=== PATIENT | female | born 1995 | race African-American/Black ===

== ENCOUNTER 2022-04-16 13:13 | Emergency (ER) | payer OTHER ==
[2022-04-16 13:52] LABS: Urine Blood 3+ (Negative); Urine Glucose Negative (Negative); Urine Protein 1+ (Negative); Urine Specific Gravity >=1.030 (1.005-1.030); Urine pH 5.5 (5.0-7.0)
[2022-04-16 14:21] LABS: Absolute Lymphocytes (CBC) 1.9 K/uL (0.7-4.9); Hematocrit 36.2 % (36.0-45.0); Lymphocytes % 32.5 % (15.3-44.8); MCV 92.4 fL (80-100); MPV 6.9 fL (7.6-11.3); RBC Red Blood Cell Count 3.92 M/uL (3.86-4.86)
[2022-04-16 15:08] LABS: Potassium 3.4 mmol/L (3.5-5.1)
[2022-04-16] MEDS ORDERED: ACETAMINOPHEN 325 MG TABLET ONE (16:07)
[2022-04-16] MEDS ORDERED: DICYCLOMINE HCL 10 MG CAP ONE (16:07)
[2022-04-16] MEDS ORDERED: NA CHLORIDE 0.9% 1,000 ML ONE (16:07)
--- NOTE | 2022-04-16 17:17 | RAD REPORT ---
EXAM DESCRIPTION: US - Transvaginal OB - 04/16/2022 4:59 pm CLINICAL HISTORY: VAGINAL BLEEDING COMPARISON: No comparisons TECHNIQUE: Sonographic grayscale and color flow images of a first-trimester were obtained through approach. FINDINGS: A single intrauterine is identified. Gestational sac is partially collapsed. [place]-rump length measures 24.7 millimeters, corresponding to gestational age of 8 weeks, 6 days. No cardiac activity was visualized. Maternal ovaries are unremarkable. No free fluid. IMPRESSION: 1. Single intrauterine with partially collapsed contour of the gestational sac and absent cardiac activity, concerning for demise. 2. Gestational age is 8 weeks and 6 days by crown-rump length, compared to 12 weeks and 2 days, by da te of last menstrual period calculation. The findings were communicated to Anirudh Marmolejo on 04/16/2022 at 17:12 hours.
[2022-04-16] MEDS ORDERED: POTASSIUM 25 MEQ EFFERV TAB ONE (17:36)
--- NOTE | 2022-04-16 17:41 | ER ---
Nurse's Notes [facility] Name: Susan Hutchins Age: 26 yrs Sex: Female : 1995 Arrival Date: 04/16/2022 Time: 13:15 Bed 13 Private MD: Diagnosis: Threatened Presentation: 04/16 13:18 Chief complaint: Light vaginal bleeding last night, became heavy with clots today. Also hb reports LLQ pain 7/10. Recently had a positive home test. LMP 02/18. . Coronavirus screen: At this time, the client does not indicate any symptoms associated with coronavirus-19. Ebola Screen: No symptoms or risks identified at this time. Initial Sepsis Screen: Does the patient meet any 2 criteria? No. Patient's initial sepsis screen is negative. Does the patient have a suspected source of infection? No. Patient's initial sepsis screen is negative. Risk Assessment: Do you want to hurt yourself or someone else? Patient reports no desire to harm self or others. Onset of symptoms was April 15, 2022. 13:18 Method Of Arrival: Ambulatory 13:18 Acuity: CAIN 3 hb Triage Assessment: 13:30 General: Appears in no apparent distress. uncomfortable, Behavior is calm, cooperative, bp appropriate for age. Pain: Complains of pain in pelvis. EENT: No deficits noted. Neuro: No deficits noted. Cardiovascular: No deficits noted. Respiratory: No deficits noted. GI: No signs and/or symptoms were reported involving the gastrointestinal system. : Reports vaginal bleeding that is with clots, moderate flow. Derm: No deficits noted. Musculoskeletal: No deficits noted. 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 - Social history:: Smoking status: Patient denies any tobacco usage or history of. Screenin:30 [facility] ED Fall Risk Assessment (Adult) History of falling in the last 3 months, bp including since admission No falls in past 3 months (0 pts). Abuse screen: Denies threats or abuse. Denies injuries from another. Nutritional screening: No deficits noted. Tuberculosis screening: No symptoms or risk factors identified. Assessment: 13:30 Obstetrical Assessment: General assessment: awake and alert, skin warm and dry, bp respirations even and unlabored. General: SEE TRIAGE NOTE. 14:30 Reassessment: No changes from previously documented assessment. Patient and/or family bp updated on plan of care and expected duration. Pain level reassessed. 16:09 Reassessment: No changes from previously documented assessment. Patient and/or family bp updated on plan of care and expected duration. Pain level reassessed. U/S PENDING. 17:50 Reassessment: PT DC HOME. bp Vital Signs: 13:18 BP 114 / 75; Pulse 101; Resp 18; Temp 98; Pulse Ox 100% on R/A; Weight 60.33 kg; Height hb 5 ft. 2 in. (157.48 cm); Pain 7/10; 14:30 BP 96 / 67; Pulse 86; Resp 16; Pulse Ox 99% ; bp 16:09 BP 98 / 70; Pulse 80; Resp 16; Pulse Ox 100% ; bp 17:51 BP 104 / 80; Pulse 79; Resp 16; Pulse Ox 99% ; bp 13:18 Body Mass Index 24.33 (60.33 kg, 157.48 cm) hb ED Course: 13:15 Patient arrived in ED. mr 13:17 Nazia Landaverde FNP-C is PHCP. kb 13:17 Anirudh Marmolejo MD is Attending Physician. kb 13:17 PHCP role handed off by Nazia Landaverde FNP-C cp 13:17 Brenden Ordonez PA is PHCP. cp 13:18 Anirudh Marmolejo MD is Attending Physician. cp 13:21 Triage completed. hb 13:21 Arm band placed on. hb 13:30 Patient has correct armband on for positive identification. Bed in low position. Call bp light in reach. Side rails up X2. 13:41 Rodriguez Davis, FERNANDEZ is Primary Nurse. bp 14:00 Inserted saline lock: 20 gauge in right antecubital area, using aseptic technique. bp Blood collected. 17:01 US Transvaginal Ob In Process Unspecified. EDMS 17:51 No provider procedures requiring assistance completed. IV discontinued, intact, bp bleeding controlled, No redness/swelling at site. Pressure dressing applied. Administered Medications: 15:45 Drug: NS 0.9% 1000 ml Route: IV; Rate: 1 bolus; Site: right antecubital; bp 15:45 Drug: Dicyclomine 20 mg Route: IM; Site: Other; bp 15:45 Drug: Tylenol 650 mg Route: PO; bp 17:32 Drug: Potassium Effervescent Tablet 25 mEq Route: PO; bp Medication: 13:30 VIS not applicable for this client. bp Point of Care Testing: Urine : 13:30 hCG Reading: Positive; Control Reading: Negative; bp Outcome: 17:41 Discharge ordered by . cp 17:51 Discharged to home ambulatory. bp 17:51 Condition: stable 17:51 Discharge instructions given to patient, Instructed on discharge instructions, follow up and referral plans. Demonstrated understanding of instructions, follow-up care. 17:52 Patient left the ED. bp Signatures: Dispatcher [employer] EDMS Nazia Landaverde, DIRECTOR OF DESIGN-C DIRECTOR OF DESIGN-Ckb Eulalio Ynes mr Brenden Ordonez PA PA cp Anyi Aj, FERNANDEZ RN Rodriguez Davis, FERNANDEZ RN bp Corrections: (The following items were deleted from the chart) 14:01 14:01 Inserted saline lock: 20 gauge in right antecubital area, using aseptic bp technique. Blood collected. bp 17:51 17:51 Reassessment: PT DC HOME bp bp
--- NOTE | 2022-04-16 17:41 | EDPHYS ---
Physician Documentation [facility] Name: Susan Hutchins Age: 26 yrs Sex: Female : 1995 Arrival Date: 04/16/2022 Time: 13:15 Bed 13 Private MD: ED Physician Anirudh Marmolejo HPI: 04/16 13:38 This 26 yrs old Black Female presents to ER via Ambulatory with complaints of Vaginal cp Bleeding, + Preg <12wks, Abdominal Cramping. 13:38 The patient presents to the emergency department with abdominal pain, of the left lower cp quadrant, that started today, described as crampy, vaginal bleeding, with clots. 13:38 Previous pregnancies: in previous pregnancies patient has had vaginal delivery. cp 13:38 Associated signs and symptoms: Pertinent positives: abdominal pain, vaginal bleeding, cp Pertinent negatives: chest pain, diarrhea, fever, vomiting. 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 - Social history:: Smoking status: Patient denies any tobacco usage or history of. ROS: 13:45 Constitutional: Negative for body aches, chills, fever, poor PO intake. cp 13:45 Eyes: Negative for injury, pain, redness, and discharge. cp 13:45 ENT: Negative for drainage from ear(s), ear pain, sore throat, difficulty swallowing, difficulty handling secretions. 13:45 Cardiovascular: Negative for chest pain, palpitations. 13:45 Respiratory: Negative for cough, shortness of breath, wheezing. 13:45 Abdomen/GI: Positive for abdominal cramps, Negative for vomiting, diarrhea, constipation. 13:45 : Positive for vaginal bleeding, Negative for urinary symptoms. 13:45 Neuro: Negative for altered mental status, headache, syncope, weakness. cp 13:45 All other systems are negative. Exam: 13:50 Constitutional: The patient appears in no acute distress, alert, awake, non-toxic, well cp developed, well nourished. 13:50 Head/Face: Normocephalic, atraumatic. cp 13:50 Eyes: Periorbital structures: appear normal, Conjunctiva: normal, no exudate, no injection, Sclera: no appreciated abnormality, Lids and lashes: appear normal, bilaterally. 13:50 ENT: External ear(s): are unremarkable, Nose: is normal, Mouth: Lips: moist, Oral mucosa: moist, Posterior pharynx: Airway: no evidence of obstruction, patent. 13:50 Chest/axilla: Inspection: normal. 13:50 Cardiovascular: Rate: tachycardic, Rhythm: regular, Edema: is not appreciated, JVD: is not appreciated. 13:50 Respiratory: the patient does not display signs of respiratory distress, Respirations: normal, no use of accessory muscles, no retractions, labored breathing, is not present, Breath sounds: are clear throughout, no decreased breath sounds, no stridor, no wheezing. 13:50 Abdomen/GI: Inspection: abdomen appears normal, Bowel sounds: active, all quadrants, Palpation: soft, in all quadrants, mild abdominal tenderness, in the left lower quadrant, rebound tenderness, is not appreciated, involuntary guarding, is not appreciated. 13:50 Back: pain, is absent, ROM is normal. 13:50 Neuro: Orientation: to person, place \T\ time. Mentation: is normal, Motor: moves all fours, strength is normal, Sensation: is normal. Vital Signs: 13:18 BP 114 / 75; Pulse 101; Resp 18; Temp 98; Pulse Ox 100% on R/A; Weight 60.33 kg; Height hb 5 ft. 2 in. (157.48 cm); Pain 7/10; 14:30 BP 96 / 67; Pulse 86; Resp 16; Pulse Ox 99% ; bp 16:09 BP 98 / 70; Pulse 80; Resp 16; Pulse Ox 100% ; bp 17:51 BP 104 / 80; Pulse 79; Resp 16; Pulse Ox 99% ; bp 13:18 Body Mass Index 24.33 (60.33 kg, 157.48 cm) hb MDM: 13:30 Patient medically screened. cp 17:40 Data reviewed: vital signs, nurses notes, lab test result(s), radiologic studies, cp ultrasound. 17:40 Differential diagnosis: STD, threatened Ab, inevitable Ab, complete Ab, retained Ab, cp ectopic . Consideration of Admission/Observation Escalation of care including admission/observation considered. I considered the following discharge prescriptions or medication management in the emergency department Medications were administered in the Emergency Department. See MAR. Counseling: I had a detailed discussion with the patient and/or guardian regarding: the historical points, exam findings, and any diagnostic results supporting the discharge/admit diagnosis, lab results, radiology results, the need for outpatient follow up, an OB/Gyne specialist, to return to the emergency department if symptoms worsen or persist or if there are any questions or concerns that arise at home. ED course: VSS. Discussed results of today's labs and US that showed no cardiac activity. Patient does not currently have OB. Recommend continued monitoring and recheck beta-hcg in 48 hrs. Return to ED worsening symptoms. 04/16 13:31 Order name: Abo/rh Typing; Complete Time: 15:14 04/16 16:44 Interpretation: Reviewed. 04/16 13:31 Order name: Basic Metabolic Panel; Complete Time: 15:14 04/16 16:43 Interpretation: Normal except: K 3.4; CL 111; GLUC 109. 04/16 13:31 Order name: CBC with Diff; Complete Time: 15:14 04/16 16:43 Interpretation: Normal except: MPV 6.9. 04/16 13:31 Order name: Quantitative Hcg; Complete Time: 15:14 04/16 16:43 Interpretation: Abnormal: HCGQ 7654. 04/16 13:52 Order name: Urine Dipstick-Ancillary; Complete Time: 15:14 EDDC 04/16 16:44 Interpretation: Normal except: UBLD 3+; UPROT 1+. 04/16 14:22 Order name: Urine --Ancillary (enter results) 04/16 13:31 Order name: IV Saline Lock; Complete Time: 14:01 04/16 13:31 Order name: Labs collected and sent; Complete Time: 14:01 04/16 13:31 Order name: NPO; Complete Time: 14:01 04/16 15:14 Order name: US Transvaginal Ob; Complete Time: 17:24 04/16 17:25 Interpretation: Report reviewed. 04/16 13:31 Order name: Urine Dipstick-Ancillary (obtain specimen); Complete Time: 14:01 04/16 13:31 Order name: Urine Test (obtain specimen); Complete Time: 14:01 cp Administered Medications: 15:45 Drug: NS 0.9% 1000 ml Route: IV; Rate: 1 bolus; Site: right antecubital; bp 15:45 Drug: Dicyclomine 20 mg Route: IM; Site: Other; bp 15:45 Drug: Tylenol 650 mg Route: PO; bp 17:32 Drug: Potassium Effervescent Tablet 25 mEq Route: PO; bp Point of Care Testing: Urine : 13:30 hCG Reading: Positive; Control Reading: Negative; bp Disposition Summary: 04/16/22 17:41 Discharge Ordered Location: Home cp Problem: new cp Symptoms: are unchanged cp Condition: Stable cp Diagnosis - Threatened cp Followup: cp - With: Private Physician - When: 48 Hours - Reason: Recheck today's complaints, Repeat Beta-HCG (48 Hours) Discharge Instructions: - Discharge Summary Sheet cp - Care cp - Threatened Miscarriage cp - Vaginal Bleeding During , First Trimester cp - First Trimester of cp - Activity Restriction During cp - Ultrasound cp Forms: - Medication Reconciliation Form cp - Thank You Letter cp - Antibiotic Education cp - Prescription Opioid Use cp Prescriptions: - 147-iron gluc-folic 13 mg iron- 1 mg Oral tablet - take 1 tablet by ORAL route 2 times per day; 60 tablet; Refills: 0, Product cp Selection Permitted Addendum: 04/18/2022 07:15 Co-signature as Attending Physician, Anirudh Marmolejo MD I reviewed the patient's care r n provided by the Advanced Practice Provider and agree with the diagnosis and treatment plan. Signatures: Dispatcher [employer] Anirudh Moses MD MD rn Page, Corey, PA PA cp Anyi Aj RN RN Rodriguez Larson RN RN bp
[2022-04-16 18:26] VITALS: TEMP 98
[2022-04-16 18:39] VITALS: BP 104/80; O2SAT 99
== END 2022-04-16 17:52 | disposition home or self-care (01) ==
LOC: ER 13:13
DX: O20.0 Threatened abortion (principal)
CPT/HCPCS: 85025; 80048; 36415; 86900; 81025; 86901; 84702; 81003; 76817; 96372; 99284; J7030

== ENCOUNTER 2022-05-06 21:11 | Emergency (ER) | payer OTHER ==
[2022-05-06] MEDS ORDERED: NA CHLORIDE 0.9% 1,000 ML ONE (21:55)
[2022-05-06 22:16] LABS: Absolute Lymphocytes (CBC) 1.9 K/uL (0.7-4.9); Hematocrit 31.9 % (36.0-45.0); Lymphocytes % 21.8 % (15.3-44.8); MCV 91.5 fL (80-100); MPV 6.2 fL (7.6-11.3); RBC Red Blood Cell Count 3.49 M/uL (3.86-4.86)
[2022-05-06 22:30] LABS: Potassium 3.6 mEq/L (3.5-5.1)
--- NOTE | 2022-05-06 22:39 | ER ---
Nurse's Notes [facility] Name: Susan Hutchins Age: 26 yrs Sex: Female : 1995 Arrival Date: 05/06/2022 Time: 21:13 Bed 7 Private MD: Diagnosis: Unknown Drug ingestion;Palpitations Presentation: 05/06 21:42 Chief complaint: Patient states: I took a blue pill called M30 and I think it is making ha1 me sick. I am very nauseous. Coronavirus screen: Vaccine status: Patient reports being unvaccinated. Ebola Screen: No symptoms or risks identified at this time. Initial Sepsis Screen: Does the patient meet any 2 criteria? No. Patient's initial sepsis screen is negative. Does the patient have a suspected source of infection? No. Patient's initial sepsis screen is negative. Risk Assessment: Do you want to hurt yourself or someone else? Patient reports no desire to harm self or others. Onset of symptoms was May 06, 2022. 21:42 Method Of Arrival: Ambulatory ha1 21:42 Acuity: CAIN 3 ha1 Triage Assessment: 21:46 General: Appears uncomfortable, Behavior is cooperative. Pain: Denies pain. EENT: No ha1 signs and/or symptoms were reported regarding the EENT system. Neuro: Level of Consciousness is awake, alert, obeys commands, Oriented to person, place, time, situation. Cardiovascular: Patient's skin is warm and dry. Respiratory: Airway is patent Respiratory effort is even, unlabored, Respiratory pattern is regular, symmetrical. GI: Abdomen is flat, non-distended. : Reports I had a miscarriage yesterday. today I took a pill for the abdominal pain I was feeling but the pill has made me really sick. Derm: Skin is moist, Skin is normal. Musculoskeletal: Circulation, motion, and sensation intact. Range of motion: intact in all extremities. 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 - Social history:: Smoking status: Patient reports the use of cigarette tobacco products, smokes one-half pack cigarettes per day. Screenin:17 [facility] ED Fall Risk Assessment (Adult) History of falling in the last 3 months, jb4 including since admission No falls in past 3 months (0 pts) Confusion or Disorientation No (0 pts) Score/Fall Risk Level 0 - 2 = Low Risk Oriented to surroundings, Maintained a safe environment. Abuse screen: Denies threats or abuse. Nutritional screening: No deficits noted. Tuberculosis screening: No symptoms or risk factors identified. Assessment: 22:17 General: Appears in no apparent distress. comfortable, Behavior is calm, cooperative. jb4 Pain: Denies pain. Neuro: Level of Consciousness is awake, alert, obeys commands, Oriented to person, place, time, situation. Cardiovascular: Patient's skin is warm and dry. Respiratory: Airway is patent Respiratory effort is even, unlabored, Respiratory pattern is regular, symmetrical. GI: No signs and/or symptoms were reported involving the gastrointestinal system. : No signs and/or symptoms were reported regarding the genitourinary system. EENT: No signs and/or symptoms were reported regarding the EENT system. Derm: Skin is intact, Skin is pink, warm \\T\\ dry. Musculoskeletal: Circulation, motion, and sensation intact. Range of motion:. Overdose: 21:46 Jermyn Suicide Severity Screening: "In the past month, have you wished you were ha1 or wished you could go to sleep and not wake up?" Patient responds "no." "In the past month, have you actually had any thoughts of killing yourself?" Patient responds "no." "In your lifetime, have you ever done anything, started to do anything, or prepared to do anything to end your life?" Patient responds "no.". Vital Signs: 21:42 BP 101 / 74; Pulse 88; Resp 20; Temp 97.9; Pulse Ox 100% ; Weight 63.96 kg; Height 5 ha1 ft. 1 in. ; 21:42 Body Mass Index 26.64 (63.96 kg, 154.94 cm) ha1 ED Course: 21:13 Patient arrived in ED. jj6 21:14 Jeferson Cui DO is Attending Physician. ms3 21:44 Triage completed. ha1 22:05 Initial lab(s) drawn, by ED staff, sent to lab. Inserted saline lock: 22 gauge in right jb4 antecubital area, using aseptic technique. Blood collected. 22:17 Patient has correct armband on for positive identification. Placed in gown. Bed in low jb4 position. Call light in reach. Side rails up X 1. Client placed on continuous cardiac and pulse oximetry monitoring. NIBP monitoring applied. 22:38 Emmett Becerra DO is Referral Physician. ms3 Administered Medications: 22:17 Drug: NS 0.9% IV 1000 ml Route: IV; Rate: 1000 ml; Site: right antecubital; jb4 Medication: 22:17 VIS not applicable for this client. jb4 Outcome: 22:39 Discharge ordered by . ms3 Signatures: Solomon Hanson, RN RN [email or web address] Jeferson Cui DO DO ms3 Puja Schreiber jj6 Annette Whiteside, RN RN ha1
--- NOTE | 2022-05-06 22:39 | EDPHYS ---
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 - Social history:: Smoking status: Patient reports the use of cigarette tobacco products, smokes one-half pack cigarettes per day. Vital Signs: 21:42 BP 101 / 74; Pulse 88; Resp 20; Temp 97.9; Pulse Ox 100% ; Weight 63.96 kg; Height 5 ha1 ft. 1 in. ; 21:42 Body Mass Index 26.64 (63.96 kg, 154.94 cm) ha1 MDM: 21:30 Patient medically screened. ms3 05/06 21:31 Order name: CBC with Diff; Complete Time: 22:30 ms3 05/06 21:31 Order name: BMP; Complete Time: 22:34 ms3 Administered Medications: 22:17 Drug: NS 0.9% IV 1000 ml Route: IV; Rate: 1000 ml; Site: right antecubital; jb4 Disposition Summary: 05/06/22 22:39 Discharge Ordered Location: Home ms3 Condition: Stable ms3 Diagnosis - Unknown Drug ingestion ms3 - Palpitations ms3 Followup: ms3 - With: Emmett Becerra DO - When: 2 - 3 days - Reason: Recheck today's complaints Forms: - Medication Reconciliation Form ms3 - Thank You Letter ms3 - Antibiotic Education ms3 - Prescription Opioid Use ms3 Signatures: Dispatcher [employer] Solomon Barnett, RN RN jb4 Jeferson Cui DO DO ms3 Annette Whiteside RN RN ha1
[2022-05-06 23:43] VITALS: TEMP 97.9
[2022-05-06 23:44] VITALS: BP 97/72; O2SAT 99
--- NOTE | 2022-05-08 17:38 | EKG ---
Test Date: 2022-05-06 Test Time: 22:44:59 Restorative Aide: JUNITO MEASUREMENT RESULTS: Intervals: Rate: 61 MA: 152 QRSD: 84 QT: 432 QTc: 434 Parker: P: 57 MA: 152 QRS: 64 T: 56 INTERPRETIVE STATEMENTS: Normal sinus rhythm Normal ECG No previous ECG available for comparison Electronically Signed On 05-08-22 17:35:46 CDT by Brian Weiner
== END 2022-05-06 22:51 | disposition home or self-care (01) ==
LOC: ER 21:11
DX: R00.2 Palpitations (principal); R11.0 Nausea; T50.995A Adverse effect of other drugs, medicaments and biological substances, initial encounter; F17.210 Nicotine dependence, cigarettes, uncomplicated
CPT/HCPCS: 93005; 85025; 80048; 36415; 99283; J7030

== ENCOUNTER 2023-11-26 22:04 | Emergency (ER) | payer OTHER ==
[2023-11-26] MEDS ORDERED: FAMOTIDINE 20 MG/2 ML VIAL IV ONE (22:24)
[2023-11-26] MEDS ORDERED: ONDANSETRON 4 MG/2 ML VIAL ONE (22:24)
[2023-11-26] MEDS ORDERED: NA CHLORIDE 0.9% 1,000 ML ONE (22:24)
[2023-11-26] MEDS ORDERED: KETOROLAC 30 MG/ML INJ ONE (22:24)
[2023-11-26 22:57] LABS: Albumin 3.3 g/dL (3.4-5.0); Albumin/Globulin Ratio 0.9 (1.1-1.8); Anion Gap 8.2 mEq/L (5.0-15.0); Bilirubin Total 0.3 mg/dL (0.2-1.0); Globulin 3.8 g/dL (2.3-3.5); Potassium 3.2 mEq/L (3.5-5.1); Protein, Total 7.1 g/dL (6.4-8.2)
[2023-11-26 22:59] LABS: Absolute Basophils 0.1 K/uL (0-0.5); Absolute Eosinophils 0.4 K/uL (0-0.5); Absolute Lymphocytes (CBC) 1.4 K/uL (0.7-4.9); Absolute Neutrophil 7.3 K/uL (1.8-8.0); Basophils % 0.5 % (0-1.3); Eosinophils % 3.5 % (0-4.4); Hematocrit 35.5 % (36.0-45.0); Hemoglobin 11.8 g/dL (12.0-15.0); Lymphocytes % 13.5 % (15.3-44.8); MCH 30.3 pg (27.0-35.0); MCHC 33.2 g/dL (32.0-36.0); MCV 91.4 fL (80-100); MPV 6.7 fL (7.6-11.3); Monocytes % 9.7 % (3.3-12.3); Neutrophils % 72.8 % (41.7-73.7); Platelets 340 thou/uL (152-406); RBC Red Blood Cell Count 3.89 M/uL (3.86-4.86)
[2023-11-26 23:00] LABS: Specific Gravity 1.026 (1.005-1.030)
[2023-11-26 23:22] LABS: Specific Gravity 1.026 (1.005-1.030); Sqamous Epithelial None Seen /HPF (None Seen); Urine Bacteria None Seen /HPF (<20); Urine Bilirubin NEGATIVE (Negative); Urine Blood Negative (Negative); Urine Clarity Extremely Turbid (Clear); Urine Color Light-Yellow (Yellow); Urine Culture Reflex Order NOT NEEDED; Urine Glucose NEGATIVE (Negative); Urine Ketones NEGATIVE (Negative); Urine Microscopic Reflex YN ORDER UMIC; Urine Nitrite NEGATIVE (Negative); Urine Protein TRACE (Negative); Urine RBC None Seen /HPF (None Seen); Urine Urobilinogen Normal (Normal); Urine WBC None Seen /HPF (<5)
--- NOTE | 2023-11-26 23:49 | RAD REPORT ---
EXAM: US Abdomen Limited, Gallbladder CLINICAL HISTORY: ABD PAIN TECHNIQUE: Real-time ultrasound of the right upper quadrant with image documentation. COMPARISON: No relevant prior studies available. FINDINGS: Gallbladder: 1.4 cm gallstone in the region of the gallbladder neck. Top normal gallbladder wall th ickness. No pericholecystic fluid. medical technologist hematology noted a sonographic positive Briceno's sign. Common bile duct: Unremarkable as visualized. No stones. No dilation. IMPRESSION: Cholelithiasis. Top normal gallbladder wall thickness. medical technologist hematology noted a sonographic po sitive Briceno's sign. Electronically signed by: Shade Lieberman MD 11/26/2023 11:41 PM CDT RP Due to temporary technical issues with the PACS/Jildy scribe reporting system, reports are being signed by the in-house radiologist without review as a courtesy to ensure prompt reporting the interpreting radiologist is fully responsible for the content of the report. Transcribed Date/Time: 11/26/2023 11:49 PM
--- NOTE | 2023-11-27 02:02 | RAD REPORT ---
CLINICAL HISTORY: Abdominal pain. COMPARISON: US Abdomen 11/26/2023. TECHNIQUE: CT ABDOMEN PELVIS WITH IV CONTRAST on 11/26/2023 11:46 PM CDT This exam was performed according to our departmental dose-optimization program, which includes autom ated exposure control, adjustment of the mA and/or kV according to patient size and/or use of iterative reconstruction technique. FINDINGS: Lower lungs are clear. Abdomen: There is a tiny cyst in the posterior lateral right lobe of the liver. There is no biliary d ilatation. Gallbladder is mildly distended. The pancreas and spleen are normal in appearance. The adrenal glands and kidneys are unremarkable. Abdominal aorta is normal in course and caliber without aneurysm. There is no free air. There is no r etroperitoneal adenopathy. Pelvis: There is no bowel obstruction. Urinary bladder is unremarkable. There is trace free pelvic fl uid. Uterus is normal in appearance. Appendix is normal. Skeleton: There are no acute osseous findings. No suspicious bony lesions. IMPRESSION: No definite acute process. Electronically signed by: Owen Underwood MD 11/27/2023 01:57 AM CDT RP Due to temporary technical issues with the PACS/mycirQle reporting system, reports are being tata d by the in-house radiologist without review as a courtesy to ensure prompt reporting the interpreting radiologist is fully responsible for the content of the report. Transcribed Date/Time: 11/27/2023 6:48 AM
--- NOTE | 2023-11-27 02:04 | EDPHYS ---
Physician Documentation [facility] Name: Susan Hutchins Age: 27 yrs Sex: Female : 1995 Arrival Date: 11/26/2023 Time: 22:04 Bed 6 Private MD: ED Physician Rajesh Torres HPI: 11/25 22:31 This 27 yrs old Black Female presents to ER via Wheelchair with complaints of stomach kb pain. 22:31 Pt is a 27 year old female who presents for epigastric pain that started 2 hours ago kb with associated nausea. Denies vomiting, fever. Denies similar symptoms in the past. Reports she is 2 months . Denies aggravating or alleviating factors. 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 - Infectious Disease History:: Denies. - Social history:: Smoking status: Patient reports the use of cigarette tobacco products, smokes one pack cigarettes per day. Patient uses street drugs, Methamphetamine (Meth). ROS: 22:32 Constitutional: As per HPI kb Exam: 22:32 Constitutional: This is a well developed, well nourished patient who is awake, alert, kb and in no acute distress. Head/Face: Normocephalic, atraumatic. ENT: Moist Mucous membranes Cardiovascular: Regular rate Respiratory: Respirations even and unlabored. No increased work of breathing. Talking in full sentences Skin: Warm, dry with normal turgor. Normal color. MS/ Extremity: Pulses equal, no cyanosis. Neurovascular intact. Full, normal range of motion. Neuro: Awake and alert, GCS 15, oriented to person, place, time, and situation. Moves all extremities. Normal gait. 22:32 Abdomen/GI: Inspection: abdomen appears normal, Bowel sounds: normal, Palpation: soft, in all quadrants, mild abdominal tenderness, in the epigastric area, left upper quadrant, right lower quadrant and left lower quadrant, moderate abdominal tenderness, in the right upper quadrant, Vital Signs: 22:15 BP 114 / 91; Pulse 66; Resp 18; Pulse Ox 100% on R/A; al5 22:22 BP 122 / 68; Pulse 81; Resp 18; Temp 97.8; Pulse Ox 98% on R/A; Weight 72.57 kg; Height al5 5 ft. 2 in. ; Pain 11/28; 23:00 BP 129 / 78; Pulse 59; Resp 18; Pulse Ox 100% on R/A; al5 11/26 00:19 BP 116 / 77; Pulse 65; Resp 18; Pulse Ox 100% on R/A; al5 02:38 BP 123 / 82; Pulse 64; Resp 18; Pulse Ox 100% on R/A; al5 11/25 22:22 Body Mass Index 29.26 (72.57 kg, 157.48 cm) al5 22:22 Pain Scale: Adult al5 00:19 patient keeps removing self off of monitor to sleep al5 MDM: 11/25 22:09 Patient medically screened. kb 22:33 Data reviewed: vital signs, nurses notes. kb 22:33 Differential diagnosis: cholecystitis, Cholelithiasis, gastroesophageal reflux disease, kb non-specific abd pain. 11/26 02:03 Counseling: I had a detailed discussion with the patient and/or guardian regarding the kb historical points, exam findings, and any diagnostic results supporting the discharge/admit diagnosis, lab results, radiology results, the need for outpatient follow up, a general surgeon, to return to the emergency department if symptoms worsen or persist or if there are any questions or concerns that arise at home. 02:08 Response to treatment: the patient's symptoms have resolved after treatment, the kb patient's pain is gone. 11/25 22:21 Order name: US Abdomen Limited 11/25 22:19 Order name: CBC with Diff; Complete Time: 23:01 kb 11/25 22:19 Order name: CMP; Complete Time: 23:01 kb 11/25 22:19 Order name: Lipase; Complete Time: 23:01 kb 11/25 22:19 Order name: Test, Urine; Complete Time: 23:19 kb 11/25 22:19 Order name: Urinalysis w/ reflexes; Complete Time: 23:25 kb 11/25 23:46 Order name: CT Abd/Pelvis - IV Contrast Only kb 11/25 22:19 Order name: IV Saline Lock; Complete Time: 22:35 kb 11/25 22:19 Order name: Labs collected and sent; Complete Time: 22:35 kb Administered Medications: 11/25 22:35 Drug: NS 0.9% IV 1000 ml IV at 1 bolus Per protocol; 1000 mL bolus Route: IV; Rate: 1 al5 bolus; Site: right antecubital; 11/26 00:00 Follow up: Response: No adverse reaction; IV Status: Completed infusion; IV Intake: al5 1000ml 11/25 22:35 Drug: Famotidine IVP 20 mg IVP once; dilute with 10 mL 0.9% NaCl; give over 2 minutes al5 Route: IVP; Site: right antecubital; 11/26 00:00 Follow up: Response: No adverse reaction; Pain is decreased al5 11/25 22:35 Drug: TORadol - Ketorolac IVP 15 mg IVP once Route: IVP; Site: right antecubital; al5 11/26 00:00 Follow up: Response: No adverse reaction; Pain is decreased al5 11/25 22:35 Drug: Ondansetron IVP 4 mg IVP once; over 2 minutes Route: IVP; Site: right antecubital;al5 11/26 00:00 Follow up: Response: No adverse reaction; Nausea is decreased al5 Disposition: 02:44 Co-signature as Attending Physician, Rajesh Torres MD I reviewed the patient's care rt provided by the Advanced Practice Provider and agree with the diagnosis and treatment plan. Disposition Summary: 11/27/23 02:04 Discharge Ordered Notes: Location: Home kb Condition: Stable kb Diagnosis - Other cholelithiasis without obstruction kb Followup: kb - With: Emergency Department - When: As needed - Reason: Worsening of condition Followup: kb - With: Private Physician - When: 2 - 3 days - Reason: Recheck today's complaints, Continuance of care, Re-evaluation by your physician Discharge Instructions: - Discharge Summary Sheet kb - Cholelithiasis, [id number] kb Forms: - Medication Reconciliation Form kb - Antibiotic Education kb - Prescription Opioid Use kb - Patient Portal Instructions kb - Leadership Thank You Letter kb Prescriptions: - Zofran 4 mg Oral tablet - take 1 tablet ORAL route every 6 hours As needed; 12 tablet; Refills: 0, kb Product Selection Permitted - dicyclomine 20 mg Oral tablet - take 1 tablet ORAL route 4 times per day As needed; 20 tablet; Refills: 0, kb Product Selection Permitted Signatures: Dispatcher [employer] ED Nazia Landaverde, FULL DECATOR OPERATOR-C FULL DECATOR OPERATOR-Ckb Rajesh Torres MD MD rt Lena Barnes RN RN al5 Corrections: (The following items were deleted from the chart) 11/25 22:32 22:31 Pt is a 27 year old female who presents for epigastric pain that started 2 hours kb ago with associated nausea. Denies vomiting, fever. Denies similar symptoms in the past. Reports she is 2 months . . kb
--- NOTE | 2023-11-27 02:04 | ER ---
Nurse's Notes [facility] Name: Susan Hutchins Age: 27 yrs Sex: Female : 1995 Arrival Date: 11/26/2023 Time: 22:04 Bed 6 Private MD: Diagnosis: Other cholelithiasis without obstruction Presentation: 11/25 22:22 Chief complaint: Patient states: c/o epigastric pain, nausea, and dizziness starting 2 al5 hours ago. admits to meth use today. Coronavirus screen: At this time, the client does not indicate any symptoms associated with coronavirus-19. Ebola Screen: No symptoms or risks identified at this time. Initial Sepsis Screen: Does the patient meet any 2 criteria? No. Patient's initial sepsis screen is negative. Does the patient have a suspected source of infection? No. Patient's initial sepsis screen is negative. Risk Assessment: Do you want to hurt yourself or someone else? Patient reports no desire to harm self or others. Onset of symptoms was November 26, 2023. 22:22 Method Of Arrival: Wheelchair al5 22:22 Acuity: CAIN 3 al5 Triage Assessment: 22:23 General: Appears in no apparent distress. uncomfortable, Behavior is cooperative, al5 fussy, restless. Pain: Complains of pain in epigastric area Pain radiates to abdomen Pain currently is 10 out of 10 on a pain scale. EENT: No signs and/or symptoms were reported regarding the EENT system. Neuro: Level of Consciousness is awake, alert, obeys commands, Oriented to person, place, time, situation. Cardiovascular: Capillary refill < 3 seconds Patient's skin is warm and dry. Respiratory: Airway is patent Respiratory effort is even, unlabored, Respiratory pattern is regular, symmetrical. GI: Abdomen is non-distended, Reports lower abdominal pain, upper abdominal pain, epigastric pain, nausea. : No signs and/or symptoms were reported regarding the genitourinary system. Derm: Skin is intact, is healthy with good turgor, Skin is pink, warm \T\ dry. normal. Musculoskeletal: No signs and/or symptoms reported regarding the musculoskeletal system. 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 - Infectious Disease History:: Denies. - Social history:: Smoking status: Patient reports the use of cigarette tobacco products, smokes one pack cigarettes per day. Patient uses street drugs, Methamphetamine (Meth). Screenin:25 [facility] ED Fall Risk Assessment (Adult) History of falling in the last 3 months, al5 including since admission No falls in past 3 months (0 pts) Confusion or Disorientation No (0 pts) Intoxicated or Sedated No (0 pts) Impaired Gait No (0 pts) Mobility Assist Device Used No (0 pt) Altered Elimination No (0 pt) Score/Fall Risk Level 0 - 2 = Low Risk Oriented to surroundings, Maintained a safe environment, Hourly rounding (assess needs \T\ fall precautionary measures) done. Abuse screen: Denies threats or abuse. Denies injuries from another. Nutritional screening: No deficits noted. Tuberculosis screening: No symptoms or risk factors identified. Assessment: 22:25 Reassessment: see triage assessment. al5 23:47 Reassessment: Patient appears in no apparent distress at this time. No changes from al5 previously documented assessment. Patient and/or family updated on plan of care and expected duration. Pain level reassessed. Patient is alert, oriented x 3, equal unlabored respirations, skin warm/dry/pink. 11/26 00:53 Reassessment: Patient appears in no apparent distress at this time. No changes from al5 previously documented assessment. Patient and/or family updated on plan of care and expected duration. Pain level reassessed. Patient is alert, oriented x 3, equal unlabored respirations, skin warm/dry/pink. patient resting comfortably at this time. 01:42 Reassessment: Patient appears in no apparent distress at this time. No changes from al5 previously documented assessment. Patient and/or family updated on plan of care and expected duration. Pain level reassessed. Patient is alert, oriented x 3, equal unlabored respirations, skin warm/dry/pink. patient resting comfortably at this time. 02:38 Reassessment: Patient appears in no apparent distress at this time. No changes from al5 previously documented assessment. Patient and/or family updated on plan of care and expected duration. Pain level reassessed. Patient is alert, oriented x 3, equal unlabored respirations, skin warm/dry/pink. Patient states feeling better. Vital Signs: 11/25 22:15 BP 114 / 91; Pulse 66; Resp 18; Pulse Ox 100% on R/A; al5 22:22 BP 122 / 68; Pulse 81; Resp 18; Temp 97.8; Pulse Ox 98% on R/A; Weight 72.57 kg; Height al5 5 ft. 2 in. ; Pain 10/10; 23:00 BP 129 / 78; Pulse 59; Resp 18; Pulse Ox 100% on R/A; al5 11/26 00:19 BP 116 / 77; Pulse 65; Resp 18; Pulse Ox 100% on R/A; al5 02:38 BP 123 / 82; Pulse 64; Resp 18; Pulse Ox 100% on R/A; al5 11/25 22:22 Body Mass Index 29.26 (72.57 kg, 157.48 cm) al5 22:22 Pain Scale: Adult al5 00:19 patient keeps removing self off of monitor to sleep al5 ED Course: 11/25 22:08 Patient arrived in ED. ra3 22:09 Naz[facility]andaverde FNP-C [facility] kb 22:09 Rajesh Torres MD is Attending Physician. kb 22:21 Lena Barnes, FERNANDEZ is Primary Nurse. al5 22:23 Triage completed. al5 22:24 Arm band placed on right wrist. Patient placed in the treatment room, on a stretcher. al5 22:34 Patient has correct armband on for positive identification. Bed in low position. Call al5 light in reach. Side rails up X2. Provided Education on: plan of care. 22:34 No provider procedures requiring assistance completed. Inserted saline lock: 20 gauge al5 in right antecubital area, using aseptic technique. Blood collected. Flushed with 10 mL NS. 22:35 CBC with Diff Sent. al5 22:35 CMP Sent. al5 22:35 Lipase Sent. al5 22:35 Test, Urine Sent. al5 22:36 Urinalysis w/ reflexes Sent. al5 22:53 US Abdomen Limited In Process Unspecified. EDMS 11/26 00:57 CT Abd/Pelvis - IV Contrast Only In Process Unspecified. EDMS 02:39 IV discontinued, intact, bleeding controlled, No redness/swelling at site. Pressure al5 dressing applied. Administered Medications: 11/25 22:35 Drug: NS 0.9% IV 1000 ml IV at 1 bolus Per protocol; 1000 mL bolus Route: IV; Rate: 1 al5 bolus; Site: right antecubital; 11/26 00:00 Follow up: Response: No adverse reaction; IV Status: Completed infusion; IV Intake: al5 1000ml 11/25 21:35 Drug: Famotidine IVP 20 mg IVP once; dilute with 10 mL 0.9% NaCl; give over 2 minutes al5 Route: IVP; Site: right antecubital; 11/26 00:00 Follow up: Response: No adverse reaction; Pain is decreased al5 11/25 21:35 Drug: TORadol - Ketorolac IVP 15 mg IVP once Route: IVP; Site: right antecubital; al5 11/26 00:00 Follow up: Response: No adverse reaction; Pain is decreased al5 11/25 21:35 Drug: Ondansetron IVP 4 mg IVP once; over 2 minutes Route: IVP; Site: right antecubital;al5 11/26 00:00 Follow up: Response: No adverse reaction; Nausea is decreased al5 Medication: 11/25 22:25 VIS not applicable for this client. al5 Intake: 11/26 00:00 IV: 1000ml; Total: 1000ml. al5 Outcome: 02:04 Discharge ordered by MD. [email or web address] 02:39 Discharged to home ambulatory, al5 02:39 Condition: good 02:39 Discharge instructions given to patient, Instructed on discharge instructions, follow up and referral plans. medication usage, Demonstrated understanding of instructions, follow-up care, medications, Prescriptions given X 2, 02:39 Patient left the ED. al5 Signatures: Dispatcher [employer] EDMS Nazia Landaverde, KERRY BRAGG-Ora Self ra3 Lena Barnes RN RN al5 Corrections: (The following items were deleted from the chart) 00:54 11/25 22:22 Onset of symptoms was November 26, 2023 al5 al5
[2023-11-27 03:21] VITALS: TEMP 97.8
[2023-11-27 03:22] VITALS: O2SAT 100
[2023-11-27 03:24] VITALS: BP 123/82
== END 2023-11-27 02:39 | disposition home or self-care (01) ==
LOC: ER 22:04
DX: K80.80 Other cholelithiasis without obstruction (principal); F17.210 Nicotine dependence, cigarettes, uncomplicated
CPT/HCPCS: 96361; 85025; 81001; 36415; 81025; 83690; 80053; 74177; 76705; 96375; 96374; 99284; Q9967; J2405; J7030

== ENCOUNTER 2023-12-04 13:28 | Emergency (ER) | payer OTHER ==
[2023-12-04] MEDS ORDERED: FAMOTIDINE 20 MG/2 ML VIAL IV ONE (13:52)
[2023-12-04] MEDS ORDERED: KETOROLAC 30 MG/ML INJ ONE (13:52)
[2023-12-04] MEDS ORDERED: ONDANSETRON 4 MG/2 ML VIAL ONE (13:52)
[2023-12-04] MEDS ORDERED: NA CHLORIDE 0.9% 1,000 ML ONE (13:52)
[2023-12-04 13:55] LABS: Absolute Basophils 0.1 K/uL (0-0.5); Absolute Eosinophils 0.4 K/uL (0-0.5); Absolute Lymphocytes (CBC) 2.3 K/uL (0.7-4.9); Absolute Monocytes 0.7 K/uL (0.1-1.3); Absolute Neutrophil 3.7 K/uL (1.8-8.0); Basophils % 0.8 % (0-1.3); Eosinophils % 5.7 % (0-4.4); Hematocrit 36.3 % (36.0-45.0); Hemoglobin 12.2 g/dL (12.0-15.0); Lymphocytes % 32.3 % (15.3-44.8); MCH 30.5 pg (27.0-35.0); MCHC 33.6 g/dL (32.0-36.0); MCV 90.7 fL (80-100); MPV 6.5 fL (7.6-11.3); Monocytes % 9.6 % (3.3-12.3); Neutrophils % 51.6 % (41.7-73.7); Platelets 388 thou/uL (152-406); RBC Red Blood Cell Count 4.01 M/uL (3.86-4.86); Red Cell Distribution Width 15.2 % (12.1-15.2)
[2023-12-04 14:12] LABS: Albumin 3.1 g/dL (3.4-5.0); Albumin/Globulin Ratio 0.8 (1.1-1.8); Anion Gap 8.1 mEq/L (5.0-15.0); Bilirubin Total 0.4 mg/dL (0.2-1.0); Globulin 4.1 g/dL (2.3-3.5); Potassium 4.1 mEq/L (3.5-5.1); Protein, Total 7.2 g/dL (6.4-8.2)
--- NOTE | 2023-12-04 15:54 | RAD REPORT ---
EXAMINATION: Abdomen Exam Limited CLINICAL HISTORY: [facility] MAIN N ABD PAIN Bed Name: 8 COMPARISON: CT abdomen and pelvis 11/27/2023 TECHNIQUE: Limited upper abdominal grayscale and color flow sonographic images. FINDINGS: Gallbladder: Numerous shadowing gallstones. Reportedly positive sonographic Briceno sign. Gallbladder wall is not thickened. Pericholecystic fluid Bile ducts: No intrahepatic or extrahepatic biliary dilatation. Common bile duct measures 5 mm. Liver: Visualized portions of the liver demonstrate normal echogenicity with no suspicious findings. Fluid: No ascites. IMPRESSION: Cholelithiasis and positive sonographic Briceno's sign, concerning for acute cholecystitis in the [facility] emergency clinical setting.
--- NOTE | 2023-12-04 16:19 | ER ---
Nurse's Notes [facility] Name: Susan Hutchins Age: 28 yrs Sex: Female : 1995 Arrival Date: 12/04/2023 Time: 13:28 Bed 8 Private MD: Diagnosis: Other cholelithiasis without obstruction Presentation: 12/03 13:35 Chief complaint: Patient states: she is having upper abdominal and mid back pain that ap3 has been intermittent for approx one week. patient states the pain is getting unbearable. patient currently rates her pain as a 7/10. Coronavirus screen: At this time, the client does not indicate any symptoms associated with coronavirus-19. Ebola Screen: No symptoms or risks identified at this time. Initial Sepsis Screen: Does the patient meet any 2 criteria? No. Patient's initial sepsis screen is negative. Does the patient have a suspected source of infection? No. Patient's initial sepsis screen is negative. Risk Assessment: Do you want to hurt yourself or someone else? Patient reports no desire to harm self or others. Onset of symptoms is unknown. 13:35 Method Of Arrival: Ambulatory ap3 13:35 Acuity: CAIN 3 ap3 Triage Assessment: 13:38 General: Appears uncomfortable, Behavior is calm, cooperative, appropriate for age, ap3 Reports chills for. Pain: Complains of pain in back and abdomen Pain currently is 7 out of 10 on a pain scale. Neuro: Level of Consciousness is awake, alert, obeys commands, Oriented to person, place, time, situation, Appropriate for age. Cardiovascular: Patient's skin is warm and dry. Respiratory: Airway is patent Respiratory effort is even, unlabored, Respiratory pattern is regular, symmetrical. GI: Reports lower abdominal pain, upper abdominal pain. 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 Flu vaccine is not up to date. - Infectious Disease History:: Denies. - Social history:: Smoking status: Patient reports the use of cigarette tobacco products, smokes one pack cigarettes per day. Screenin:39 [facility] ED Fall Risk Assessment (Adult) History of falling in the last 3 months, ap3 including since admission No falls in past 3 months (0 pts) Confusion or Disorientation No (0 pts) Intoxicated or Sedated No (0 pts) Impaired Gait No (0 pts) Mobility Assist Device Used No (0 pt) Altered Elimination No (0 pt) Score/Fall Risk Level 0 - 2 = Low Risk Oriented to surroundings, Maintained a safe environment, Educated pt \T\ family on fall prevention, incl call for assistance when getting out of bed, Assessed \T\ reinforced patient's understanding of fall precautions, Hourly rounding (assess needs \T\ fall precautionary measures) done, Used ambulatory aids as needed (educated on \T\ assisted with), Used gait belt as appropriate. Abuse screen: Denies threats or abuse. Nutritional screening: No deficits noted. Tuberculosis screening: No symptoms or risk factors identified. Assessment: 14:09 General: Appears in no apparent distress. uncomfortable, Behavior is calm, cooperative. hb Pain: Pain currently is 8 out of 10 on a pain scale. Neuro: Level of Consciousness is awake, alert, obeys commands, Oriented to person, place, time, situation. Cardiovascular: Patient's skin is warm and dry. Respiratory: Respiratory effort is even, unlabored, Respiratory pattern is regular, symmetrical. GI: Reports upper abdominal pain, nausea. : No signs and/or symptoms were reported regarding the genitourinary system. EENT: No signs and/or symptoms were reported regarding the EENT system. Derm: Skin is pink, warm \T\ dry. Musculoskeletal: No signs and/or symptoms reported regarding the musculoskeletal system. 15:46 Reassessment: No changes from previously documented assessment. Patient is alert, bp oriented x 3, equal unlabored respirations, skin warm/dry/pink. 16:30 Reassessment: Patient appears in no apparent distress at this time. Patient and/or hb family updated on plan of care and expected duration. Pain level reassessed. Patient is alert, oriented x 3, equal unlabored respirations, skin warm/dry/pink. Vital Signs: 13:35 BP 110 / 71; Pulse 89; Resp 17; Temp 98.1; Pulse Ox 100% ; Weight 69.4 kg; Height 5 ft. ap3 1 in. ; Pain 7/10; 15:46 BP 108 / 70; Pulse 71; Resp 16; Pulse Ox 98% ; bp 16:30 BP 118 / 68; Pulse 74; Resp 16; Pulse Ox 99% on R/A; hb 13:35 Body Mass Index 28.91 (69.40 kg, 154.94 cm) ap3 13:35 Pain Scale: Adult ap3 ED Course: 13:29 Patient arrived in ED. mg5 13:34 Nazia Landaverde FNP-C [facility] kb 13:34 Jefe Gillespie MD is Attending Physician. kb 13:38 Triage completed. ap3 13:39 Arm band placed on right wrist. ap3 13:42 Rodriguez Davis, FERNANDEZ is Primary Nurse. bp 13:47 Initial lab(s) drawn, by me, sent to lab. Inserted saline lock: 20 gauge in right bp forearm, using aseptic technique. Blood collected. Flushed with 10 mL NS. 13:58 Abdomen Limited US In Process Unspecified. EDMS 14:09 Patient has correct armband on for positive identification. Bed in low position. Call hb light in reach. Provided Education on: tests, result times, use of call light. 16:52 No provider procedures requiring assistance completed. IV discontinued, intact, hb bleeding controlled, No redness/swelling at site. Pressure dressing applied. Administered Medications: 14:11 Drug: Famotidine IVP 20 mg IVP once; dilute with 10 mL 0.9% NaCl; give over 2 minutes hb Route: IVP; Site: right antecubital; 14:30 Follow up: Response: No adverse reaction hb 14:11 Drug: TORadol - Ketorolac IVP 15 mg IVP once Route: IVP; Site: right antecubital; hb 14:40 Follow up: Response: No adverse reaction hb 14:11 Drug: Ondansetron IVP 4 mg IVP once; over 2 minutes Route: IVP; Site: right antecubital;hb 14:40 Follow up: Response: No adverse reaction hb 14:11 Drug: NS 0.9% IV 1000 ml IV at 1 bolus Per protocol; to be given as a bolus over 60 hb minutes Route: IV; Rate: 1 bolus; Site: right antecubital; 15:10 Follow up: Response: No adverse reaction; IV Status: Completed infusion; IV Intake: hb 1000ml Medication: 14:09 VIS not applicable for this client. hb Intake: 15:10 IV: 1000ml; Total: 1000ml. hb Outcome: 16:18 Discharge ordered by . neeta 16:52 Discharged to home ambulatory, hb 16:52 Condition: stable 16:52 Discharge instructions given to patient, Instructed on discharge instructions, follow up and referral plans. medication usage, Demonstrated understanding of instructions, follow-up care, medications, Prescriptions given X 1, 16:52 Patient left the ED. hb Signatures: Dispatcher [employer] EDMS Nazia Landaverde, BUSINESS TRANSFORMATION ANALYST-C BUSINESS TRANSFORMATION ANALYST-Anyi Rm RN RN Rodriguez Davis RN RN Lena Hernandez RN RN ap3 Graciela Sadler 5
--- NOTE | 2023-12-04 16:19 | EDPHYS ---
Physician Documentation [facility] Name: Susan Hutchins Age: 28 yrs Sex: Female : 1995 Arrival Date: 12/04/2023 Time: 13:28 Bed 8 Private MD: ED Physician Jefe Gillespie HPI: 12/03 16:20 This 28 yrs old Black Female presents to ER via Ambulatory with complaints of Abdominal kb Pain. 16:20 Pt is a 28 year old female who presents for "kidney pain" that started today. States kb the pain started after eating cereal. Was seen here 8 days ago for similar pain, which went away but came back today. Denies n/v/d, fever. . 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 Flu vaccine is not up to date. - Infectious Disease History:: Denies. - Social history:: Smoking status: Patient reports the use of cigarette tobacco products, smokes one pack cigarettes per day. ROS: 16:19 Constitutional: As per HPI kb Exam: 16:19 Constitutional: This is a well developed, well nourished patient who is awake, alert, kb and in no acute distress. Head/Face: Normocephalic, atraumatic. ENT: Moist Mucous membranes Cardiovascular: Regular rate Respiratory: Respirations even and unlabored. No increased work of breathing. Talking in full sentences Skin: Warm, dry with normal turgor. Normal color. MS/ Extremity: Pulses equal, no cyanosis. Neurovascular intact. Full, normal range of motion. Neuro: Awake and alert, GCS 15, oriented to person, place, time, and situation. Moves all extremities. Normal gait. 16:19 Abdomen/GI: Inspection: abdomen appears normal, Bowel sounds: normal, Palpation: soft, in all quadrants, mild abdominal tenderness, in the left upper quadrant, moderate abdominal tenderness, in the right upper quadrant, Vital Signs: 13:35 BP 110 / 71; Pulse 89; Resp 17; Temp 98.1; Pulse Ox 100% ; Weight 69.4 kg; Height 5 ft. ap3 1 in. ; Pain 7/10; 15:46 BP 108 / 70; Pulse 71; Resp 16; Pulse Ox 98% ; bp 16:30 BP 118 / 68; Pulse 74; Resp 16; Pulse Ox 99% on R/A; hb 13:35 Body Mass Index 28.91 (69.40 kg, 154.94 cm) ap3 13:35 Pain Scale: Adult ap3 MDM: 13:34 Medical Screening Exam initiated kb 16:15 Differential diagnosis: cholelithiasis, cholecystitis, pancreatitis, kidney stone. Data kb reviewed: vital signs, nurses notes. Consideration of Admission/Observation Escalation of care including admission/observation considered. admission considered but pain has resolved, labs wnl, no pericholecystic fluid or wall thickening. . Management of patient was discussed with the following: Dr Gillespie, recommends admission if pain persist, outpatient follow up if painfree. Counseling: I had a detailed discussion with the patient and/or guardian regarding the historical points, exam findings, and any diagnostic results supporting the discharge/admit diagnosis, lab results, radiology results, the need for outpatient follow up, a general surgeon, to return to the emergency department if symptoms worsen or persist or if there are any questions or concerns that arise at home. ED course: Pain has resolved, pt states "I don't feel it anymore." Pt educated on need for close follow up with general surgeon. Pt will call to make an appt upon discharge from here or first thing in the morning. . 12/03 13:40 Order name: CBC with Diff; Complete Time: 13:56 kb 12/03 13:40 Order name: CMP; Complete Time: 14:19 kb 12/03 13:40 Order name: Lipase; Complete Time: 14:19 kb 12/03 13:40 Order name: Abdomen Limited US; Complete Time: 16:08 kb 12/03 13:40 Order name: IV Saline Lock; Complete Time: 13:47 kb 12/03 13:40 Order name: Labs collected and sent; Complete Time: 13:47 kb Administered Medications: 14:11 Drug: Famotidine IVP 20 mg IVP once; dilute with 10 mL 0.9% NaCl; give over 2 minutes hb Route: IVP; Site: right antecubital; 14:30 Follow up: Response: No adverse reaction hb 14:11 Drug: TORadol - Ketorolac IVP 15 mg IVP once Route: IVP; Site: right antecubital; hb 14:40 Follow up: Response: No adverse reaction hb 14:11 Drug: Ondansetron IVP 4 mg IVP once; over 2 minutes Route: IVP; Site: right antecubital;hb 14:40 Follow up: Response: No adverse reaction hb 14:11 Drug: NS 0.9% IV 1000 ml IV at 1 bolus Per protocol; to be given as a bolus over 60 hb minutes Route: IV; Rate: 1 bolus; Site: right antecubital; 15:10 Follow up: Response: No adverse reaction; IV Status: Completed infusion; IV Intake: hb 1000ml Disposition Summary: 12/04/23 16:18 Discharge Ordered Notes: Location: Home kb Condition: Stable kb Diagnosis - Other cholelithiasis without obstruction kb Followup: kb - With: Emergency Department - When: As needed - Reason: Worsening of condition Followup: kb - With: Private Physician - When: 2 - 3 days - Reason: Recheck today's complaints, Continuance of care, Re-evaluation by your physician Discharge Instructions: - Discharge Summary Sheet kb - Cholelithiasis, [id number] kb Forms: - Medication Reconciliation Form kb - Antibiotic Education kb - Prescription Opioid Use kb - Patient Portal Instructions kb - Leadership Thank You Letter kb Prescriptions: - Diclofenac Sodium 75 mg Oral tablet, delayed release (enteric coated) - take 1 tablet ORAL route 2 times per day As needed; 30 tablet; Refills: 0, kb Product Selection Permitted Signatures: Dispatcher [employer] EDMS Nazia Landaverde, CLOTH BOOKER-C CLOTH BOOKER-Angelb Anyi Aj, RN RN Lena Leija RN RN ap3 Corrections: (The following items were deleted from the chart) 13:41 13:41 CBC+H.LAB.BRZ ordered. EDMS EDMS 13:41 13:41 COMPREHENSIVE METABOLIC PANEL+C.LAB.BRZ ordered. EDMS EDMS 13:41 13:41 LIPASE+C.LAB.BRZ ordered. EDMS EDMS 13:41 13:41 Test, Urine+UC.LAB.BRZ ordered. EDMS EDMS 13:41 13:41 Urinalysis+U.LAB.BRZ ordered. EDMS EDMS 13:41 13:41 Abdomen Limited+US.RAD.BRZ ordered. EDMS EDMS
[2023-12-04 17:54] VITALS: TEMP 98.1
[2023-12-04 17:55] VITALS: BP 118/68; O2SAT 99
== END 2023-12-04 16:52 | disposition home or self-care (01) ==
LOC: ER 13:28
DX: K80.80 Other cholelithiasis without obstruction (principal); F17.210 Nicotine dependence, cigarettes, uncomplicated
CPT/HCPCS: 85025; 36415; 83690; 80053; 76705; J2405; J7030; 96361; 96374; 96375; 99284